=== PATIENT | male | born 1970 | race Caucasian/White ===

== ENCOUNTER → 2021-12-03 | Outpatient (CLI) | payer OTHER | LOC: MHCPAIN 12:33 | DX: M47.817 Spondylosis without myelopathy or radiculopathy, lumbosacral region (principal); M53.3 Sacrococcygeal disorders, not elsewhere classified; M54.16 Radiculopathy, lumbar region; G89.29 Other chronic pain | CPT/HCPCS: G0463 ==

== ENCOUNTER → 2021-12-13 | Outpatient (CLI) | payer OTHER | LOC: MHCPAIN 08:45 | DX: M47.817 Spondylosis without myelopathy or radiculopathy, lumbosacral region (principal); M54.16 Radiculopathy, lumbar region; M53.3 Sacrococcygeal disorders, not elsewhere classified | CPT/HCPCS: J1100; Q9967 ==

== ENCOUNTER → 2022-01-02 | Outpatient (CLI) | payer OTHER | LOC: MHCPAIN 08:31 | DX: M54.50 Low back pain, unspecified (principal); M53.3 Sacrococcygeal disorders, not elsewhere classified; M47.817 Spondylosis without myelopathy or radiculopathy, lumbosacral region | CPT/HCPCS: G0463 ==

== ENCOUNTER → 2022-01-10 | Outpatient (CLI) | payer OTHER | LOC: MHCPAIN 08:33 | DX: M47.817 Spondylosis without myelopathy or radiculopathy, lumbosacral region (principal); M53.3 Sacrococcygeal disorders, not elsewhere classified; M54.50 Low back pain, unspecified ==

== ENCOUNTER → 2022-01-24 | Outpatient (CLI) | payer OTHER | LOC: MHCPAIN 10:33 | DX: M47.817 Spondylosis without myelopathy or radiculopathy, lumbosacral region (principal); M53.3 Sacrococcygeal disorders, not elsewhere classified; M54.50 Low back pain, unspecified | CPT/HCPCS: G0463 ==

== ENCOUNTER → 2022-02-18 | Outpatient (CLI) | payer OTHER | LOC: MHCPAIN 09:42 | DX: M47.817 Spondylosis without myelopathy or radiculopathy, lumbosacral region (principal); M53.3 Sacrococcygeal disorders, not elsewhere classified; M54.50 Low back pain, unspecified | CPT/HCPCS: G0463 ==

== ENCOUNTER → 2023-08-06 | Outpatient (CLI) | payer OTHER | LOC: MHCPAIN 08:12 | DX: M51.26 Other intervertebral disc displacement, lumbar region (principal); M47.816 Spondylosis without myelopathy or radiculopathy, lumbar region; M48.061 Spinal stenosis, lumbar region without neurogenic claudication | CPT/HCPCS: G0463 ==

== ENCOUNTER → 2024-03-31 | Outpatient (CLI) | payer OTHER | LOC: MHCPAIN 08:04 | DX: M51.27 Other intervertebral disc displacement, lumbosacral region (principal); M43.16 Spondylolisthesis, lumbar region; M47.816 Spondylosis without myelopathy or radiculopathy, lumbar region; M48.061 Spinal stenosis, lumbar region without neurogenic claudication | CPT/HCPCS: G0463 ==